=== PATIENT | male | born 1990 | race Hispanic/Latino ===

== ENCOUNTER 2021-11-29 13:56 | Emergency (ER) | payer BC ==
[~2021-11-29] VITALS: Ht 167.6 cm; Wt 68.0 kg
== END 2021-11-29 17:21 | disposition home or self-care (01) ==
LOC: ED 13:56
DX: S06.0X0A Concussion without loss of consciousness, initial encounter (principal); C41.2 Malignant neoplasm of vertebral column; W22.8XXA Striking against or struck by other objects, initial encounter
CPT/HCPCS: 70450; 99284-25